=== PATIENT | female | born 1995 | race Caucasian/White ===

== ENCOUNTER 2016-08-09 16:58 | Inpatient (IN) | payer MEDICAID ==
[~2016-08-09] VITALS: Ht 160 cm; Wt 106.1 kg
[2016-08-09 17:07] VITALS: BP 124/66
[2016-08-09 17:22] VITALS: BP 124/66
[2016-08-09] MEDS ORDERED: DINOPROSTONE 10 MG (CERVIDIL) INSERT PV ONE (18:15)
[2016-08-09] MEDS: D5 LR IV SOLUTION 1,000 ML IV SCH ×2 (18:25→18:31)
[2016-08-09 18:29] LABS: BASOPHILS % (AUTO) 0 % (0-10); EOSINOPHILS # (AUTO) 0.1 10^3/uL (0.0-0.3); EOSINOPHILS % (AUTO) 1 % (0-10); LYMPHOCYTES % (AUTO) 20 % (12-44); MEAN CORPUSCULAR HEMOGLOBIN 30 PG (25-34); MEAN CORPUSCULAR HGB CONC 34 G/DL (32-36); MEAN CORPUSCULAR VOLUME 88 FL (80-99); MEAN PLATELET VOLUME 9.8 FL (7.4-10.4); MONOCYTES # (AUTO) 1.2 X 10^3 (0.0-1.0); MONOCYTES % (AUTO) 12 % (0-12); NEUTROPHILS # (AUTO) 6.8 X 10^3 (1.8-7.8); NEUTROPHILS % (AUTO) 67 % (42-75); PLATELET COUNT 299 10^3/uL (130-400); RED BLOOD COUNT 3.83 10^6/uL (4.35-5.85); RED CELL DISTRIBUTION WIDTH 13.1 % (10.0-14.5)
[2016-08-09 18:30] VITALS: BP 109/60
[2016-08-09] MEDS ORDERED: FLU TRIvalent (5 YOA+) 2016-17 (AFLURIA) 0.5 ML IM ONE (18:45)
[2016-08-09] MEDS ORDERED: ACETAMINOPHEN 500 MG TAB (TYLENOL) ONE (19:38)
[2016-08-09] MEDS ORDERED: OXYTOCIN/NORMAL SALINE 500 ML IV SCH (19:44)
[2016-08-09] MEDS ORDERED: ACETAMINOPHEN 500 MG TAB (TYLENOL) PO ONE (19:45)
--- NOTE | 2016-08-09 19:48 | OB Bishop Score ---
Acevedo Score 6 BAIRON LEGGETT MD Aug 09, 2016 19:48
--- NOTE | 2016-08-09 19:52 | History & Physical ---
History and Physical this patient is a 20-year-old G1 female with an EDC of August 17, 2016. She was admitted in the evening of August 09 for Cervidil cervical ripening with plans for Pitocin induction of labor at 39 weeks on August 10. Her was been uncomplicated although her OSWALDO was low on the last 2 ultrasounds. patient had GBS culture after 35 weeks gestation was negative. She denies rupture membranes or bleeding. Allergies are to penicillin which causes facial swelling Medications are vitamins Medical history, past surgical history, obstetric history, family history, and social histories are per the antepartum record HEENT exam is normal Neck is supple no lymphadenopathy no thyromegaly Abdomen is gravid soft nontender nondistended Extremities show no clubbing or cyanosis. There is no Homans sign. Pelvic exam last performed in clinic showed a cervix that was almost 1 cm dilated 60 percent or more effaced anus 2 station soft in consistency and intermediate to anterior in position equates to a Acevedo score of 6 or 7. Currently monitor shows normal heart rate pattern with some uterine irritability. Patient has had Cervidil placed about an hour to an hour and a half ago Laboratory Tests 08/09/16 18:05 CBC is essentially normal Assessment and plan term at 39 weeks on August 10. Patient has mild oligohydramnios and has been admitted now for Cervidil cervical ripening with intent for Pitocin induction of labor on August 10 which puts her at 39 weeks' gestation on the day of induction. Anticipation is for vaginal delivery although plans preparations are in place for delivery if needed. term intrauterine admitted for elective induction of labor with mild oligohydramnios Allergies and Home Medications Allergies Coded Allergies: Penicillins (Verified Allergy, Severe, HIVES, 08/09/16) Uncoded Allergies: Bee Stings (Allergy, Severe, HIVES, 08/09/16) Hives and swelling. Clinical Quality Measures DVT/VTE Risk/Contraindication: Risk Factor Score Per Nursin RFS Level Per Nursing on Admit: 1=Low/No VTE PPX BAIRON LEGGETT MD Aug 09, 2016 19:52
[2016-08-09 20:00] VITALS: BP 119/62
[2016-08-09] MEDS ORDERED: oxyCODONE/APAP 10/325MG (PERCOCET 10) TABLET PO ONE (21:54)
[2016-08-09] MEDS ORDERED: oxyCODONE/APAP 10/325MG (PERCOCET 10) TABLET PO PRN (22:00)
[2016-08-10] VITALS (57 sets, daily range): BP systolic 100–153; BP diastolic 52–81
[2016-08-10] MEDS: D5 LR IV SOLUTION 1,000 ML IV SCH ×3 (01:00→14:04)
--- NOTE | 2016-08-10 07:41 | Progress Note-Standard ---
Standard Progress Note Progress Notes/Assess & Plan Progress/Assessment & Plan patient is without complaint. She reports feeling a little bit crampy. She denies rupture membranes or bleeding. She does feel baby moving. Vital Signs Date Time Temp Pulse Resp B/P Pulse Ox O2 Delivery O2 Flow Rate FiO2 08/10/16 04:00 08/10/16 03:00 08/10/16 02:00 08/10/16 01:00 08/10/16 00:00 08/09/16 23:00 08/09/16 22:00 08/09/16 21:00 08/09/16 20:00 97.8 87 18 119/62 08/09/16 18:30 98 20 109/60 08/09/16 17:22 100 20 124/66 Room Air 08/09/16 17:07 98.0 100 20 124/66 Room Air I & O 08/10/16 07:00 Intake Total 100 ml Balance 100 ml Vital signs are stable. Patient is afebrile. Abdomen is gravid and benign. Extremities show no clubbing cyanosis. There is no Homans sign. There is some pretibial pitting edema that is normal. Pelvic exam reveals a cervix 1-2 cm dilated, 60+ percent effaced, mid to anterior, very soft and stretchy, stenting part is the vertex at the -1 station. Drains are intact amniotomy performed releasing clear fluid Assessment and plan 39 week gestation status post Cervidil cervical ripening now with Pitocin initiated for induction of labor. This patient is for a vaginal delivery. Plans preparations are in place for if needed BAIRON LEGGETT MD Aug 10, 2016 7:41 am
[2016-08-10] MEDS ORDERED: SUFENTA 0.6MCG/ML BUPIVA 0.125 100 ML ONE (10:49)
[2016-08-10] MEDS ORDERED: fentaNYL INJECTION 100 MCG/2 ML AMP ONE ×2 (10:54→18:05)
[2016-08-10] MEDS ORDERED: LACTATED RINGERS 1,000 ML IV ONE (11:31)
[2016-08-10] MEDS ORDERED: METOCLOPRAMIDE INJ 10 MG/2 ML (REGLAN) IV PRN ×2 (11:45→19:15)
[2016-08-10] MEDS ORDERED: fentaNYL INJECTION 100 MCG/2 ML AMP INJ ONE (11:45)
[2016-08-10] MEDS ORDERED: ONDANSETRON 4 MG/2 ML (SDV) Z0FRAN IV PRN ×2 (11:45→19:15)
[2016-08-10] MEDS ORDERED: diphenhydrAMINE 50 MG/ML INJ (BENADRYL) IV PRN ×2 (11:45→19:15)
[2016-08-10] MEDS ORDERED: NALOXONE 0.4 MG/ML 1 ML (NARCAN) VIAL IV PRN ×4 (11:45→19:15)
[2016-08-10] MEDS ORDERED: EPIDURAL (SUFENTA 0.6MCG/ML BUPIVA 0.125%) 100 ML BAG EPI PRN (11:45)
[2016-08-10] MEDS ORDERED: TERBUTALINE INJ 1 MG/ML (BRETHINE) AMP SC ONE (17:35)
[2016-08-10] MEDS ORDERED: TERBUTALINE INJ 1 MG/ML (BRETHINE) AMP ONE (17:42)
[2016-08-10] MEDS ORDERED: D5 LR IV SOLUTION 1,000 ML IV SCH (17:45)
[2016-08-10] MEDS ORDERED: CLINDAMYCIN 900 MG/50 ML IVPB 50 ML IV NR (17:45)
--- NOTE | 2016-08-10 17:52 | Progress Note-Standard ---
Standard Progress Note Progress Notes/Assess & Plan Progress/Assessment & Plan patient is without complaint. She reports feeling a little bit crampy. She denies rupture membranes or bleeding. She does feel baby moving. Vital Signs Date Time Temp Pulse Resp B/P Pulse Ox O2 Delivery O2 Flow Rate FiO2 08/10/16 04:00 08/10/16 03:00 08/10/16 02:00 08/10/16 01:00 08/10/16 00:00 08/09/16 23:00 08/09/16 22:00 08/09/16 21:00 08/09/16 20:00 97.8 87 18 119/62 08/09/16 18:30 98 20 109/60 08/09/16 17:22 100 20 124/66 Room Air 08/09/16 17:07 98.0 100 20 124/66 Room Air I & O 08/10/16 07:00 Intake Total 100 ml Balance 100 ml Vital signs are stable. Patient is afebrile. Abdomen is gravid and benign. Extremities show no clubbing cyanosis. There is no Homans sign. There is some pretibial pitting edema that is normal. Pelvic exam reveals a cervix 1-2 cm dilated, 60+ percent effaced, mid to anterior, very soft and stretchy, stenting part is the vertex at the -1 station. Drains are intact amniotomy performed releasing clear fluid Assessment and plan 39 week gestation status post Cervidil cervical ripening now with Pitocin initiated for induction of labor. This patient is for a vaginal delivery. Plans preparations are in place for if needed Final Diagnosis patient now complaining of markedly suprapubic pain with contractions. Epidural had been adequate but now the pain is progressive and is not taking care with the epidural. She has had some bloody show. The urine looks slightly pink tinged. Exam reveals a cervix is low more than 57 Ms. dilated 90 percent effaced -1 station with the presenting part well above the pubic symphysis. Cervix is lasted and stretchy. The presenting part is not applied to the cervix. Pitocin is at 36 mU/m. Patient has been 5 cm for several hours now. She indicates that she does not want to continue it does not look like vaginal delivery is eminent. I have discussed her exam and the history through the day. It does appear that there CPD preventing progress at this point I have recommended with which the patient agrees. Pitocin. Patient be given a break from the contractions and surgical crews and anesthesia have been called Vital Signs Date Time Temp Pulse Resp B/P Pulse Ox O2 Delivery O2 Flow Rate FiO2 08/10/16 14:50 78 18 133/63 Room Air 08/10/16 14:36 86 18 143/63 Room Air 08/10/16 14:21 78 18 135/64 Room Air 08/10/16 14:05 85 18 102/54 Room Air 08/10/16 13:50 82 18 103/54 Room Air 08/10/16 13:35 85 18 102/53 Room Air 08/10/16 13:20 85 18 100/52 Room Air 08/10/16 13:07 85 18 111/56 Room Air 08/10/16 12:51 78 18 126/60 97 Room Air 08/10/16 12:30 83 18 129/58 98 Room Air 08/10/16 12:17 83 18 122/69 100 Room Air 08/10/16 12:12 84 18 130/60 99 Room Air 08/10/16 12:08 88 18 131/66 99 Room Air 08/10/16 12:01 87 18 126/54 100 Room Air 08/10/16 11:56 86 18 136/69 98 Room Air 08/10/16 11:51 85 18 129/58 98 Room Air 08/10/16 11:45 87 18 131/60 98 Room Air 08/10/16 11:37 89 18 128/60 98 Room Air 08/10/16 11:32 98.1 91 20 133/70 99 Room Air 08/10/16 11:27 94 20 138/69 100 Room Air 08/10/16 11:22 92 20 140/73 99 Room Air 08/10/16 11:16 91 20 133/68 100 Room Air 08/10/16 11:11 90 20 144/81 99 Room Air 08/10/16 11:08 96 20 144/80 99 Room Air 08/10/16 11:02 88 20 129/66 98 Room Air 08/10/16 10:51 97 18 137/75 08/10/16 10:33 91 18 126/67 08/10/16 10:18 93 18 123/65 08/10/16 10:05 90 18 125/69 08/10/16 09:50 98.3 90 18 131/60 08/10/16 09:35 93 18 130/71 08/10/16 09:19 88 18 134/69 08/10/16 09:03 93 18 129/63 08/10/16 08:50 93 18 123/58 08/10/16 08:35 93 20 124/69 08/10/16 08:19 96 20 126/61 08/10/16 08:05 96 20 123/63 08/10/16 07:48 94 18 131/79 08/10/16 07:20 98.0 08/10/16 07:05 86 18 130/64 08/10/16 04:00 08/10/16 03:00 08/10/16 02:00 08/10/16 01:00 08/10/16 00:00 08/09/16 23:00 08/09/16 22:00 08/09/16 21:00 08/09/16 20:00 97.8 87 18 119/62 08/09/16 18:30 98 20 109/60 I & O 08/10/16 07:00 Intake Total 100 ml Balance 100 ml I signs are stable. Patient afebrile. Exam is as noted above. Assessment and plan a progress in labor likely secondary to CPD. Uncertain as to the position of the presenting part that will be determined at the time of delivery as well have the feeling that this is a persistent occiput posterior. We will proceed now with delivery. BAIRON LEGGETT MD Aug 10, 2016 5:52 pm
[2016-08-10] MEDS ORDERED: D5 LR IV SOLUTION 1,000 ML IV ONE (17:54)
[2016-08-10] MEDS ORDERED: CITRIC ACID/SOB CIT (BICITRA) 30 ML UDC ONE (17:55)
[2016-08-10] MEDS ORDERED: METOCLOPRAMIDE INJ 10 MG/2 ML (REGLAN) ONE (17:55)
[2016-08-10] MEDS ORDERED: FAMOTIDINE 20MG/2ML IV (PEPCID) ONE (17:55)
[2016-08-10] MEDS ORDERED: MEPERIDINE (DEMEROL) INJ 100 MG/ML IM PRN (18:00)
[2016-08-10] MEDS ORDERED: PROMETHAZINE INJ 25 MG/ML (PHENERGAN) AMP IM PRN (18:00)
[2016-08-10] MEDS ORDERED: TETANUS,DIPTH,PERTUSS P/F (BOOSTRIX) 0.5 ML VIAL IM ONE (18:00)
[2016-08-10] MEDS ORDERED: MEASLES,MUMPS,RUBELLA 1 EA INJ SC ONE (18:00)
[2016-08-10] MEDS ORDERED: KETOROLAC 30 MG/ML VIAL ONE (18:07)
[2016-08-10] MEDS ORDERED: OXYTOCIN/NORMAL SALINE 1,000 ML IV ONE (18:07)
[2016-08-10] MEDS ORDERED: ONDANSETRON 4 MG/2 ML (SDV) Z0FRAN ONE (18:07)
[2016-08-10] MEDS ORDERED: PHENYLEPHRINE 100 MCG/ML 10 ML (ANESTHESIA) SYR ONE (18:53)
[2016-08-10] MEDS: KETOROLAC 30 MG/ML VIAL IVP SCH (19:00)
[2016-08-10] MEDS ORDERED: METOCLOPRAMIDE INJ 10 MG/2 ML (REGLAN) IV ONE (19:00)
[2016-08-10] MEDS ORDERED: CITRIC ACID/SOB CIT (BICITRA) 30 ML UDC PO ONE (19:00)
[2016-08-10] MEDS ORDERED: FAMOTIDINE 20MG/2ML IV (PEPCID) IV ONE (19:00)
[2016-08-10] MEDS: OXYTOCIN/NORMAL SALINE 500 ML IV SCH ×2 (19:41→22:53)
[2016-08-10] MEDS: oxyCODONE/APAP 10/325MG (PERCOCET 10) TABLET PO PRN (22:50)
[2016-08-11 00:15] VITALS: BP 121/72
[2016-08-11] MEDS: KETOROLAC 30 MG/ML VIAL IVP SCH ×2 (00:26→06:02)
[2016-08-11] MEDS: DOCUSATE SODIUM 100 MG (COLACE) CAP PO SCH ×3 (00:27→22:23)
[2016-08-11 06:00] VITALS: BP 130/72
--- NOTE | 2016-08-11 07:29 | Progress Note-Standard ---
Standard Progress Note Progress Notes/Assess & Plan Progress/Assessment & Plan patient is without complaint. She reports feeling a little bit crampy. She denies rupture membranes or bleeding. She does feel baby moving. Vital Signs Date Time Temp Pulse Resp B/P Pulse Ox O2 Delivery O2 Flow Rate FiO2 08/10/16 04:00 08/10/16 03:00 08/10/16 02:00 08/10/16 01:00 08/10/16 00:00 08/09/16 23:00 08/09/16 22:00 08/09/16 21:00 08/09/16 20:00 97.8 87 18 119/62 08/09/16 18:30 98 20 109/60 08/09/16 17:22 100 20 124/66 Room Air 08/09/16 17:07 98.0 100 20 124/66 Room Air I & O 08/10/16 07:00 Intake Total 100 ml Balance 100 ml Vital signs are stable. Patient is afebrile. Abdomen is gravid and benign. Extremities show no clubbing cyanosis. There is no Homans sign. There is some pretibial pitting edema that is normal. Pelvic exam reveals a cervix 1-2 cm dilated, 60+ percent effaced, mid to anterior, very soft and stretchy, stenting part is the vertex at the -1 station. Drains are intact amniotomy performed releasing clear fluid Assessment and plan 39 week gestation status post Cervidil cervical ripening now with Pitocin initiated for induction of labor. This patient is for a vaginal delivery. Plans preparations are in place for if needed August 11, 2016 Patient is without complaint. She is ambulating, voiding, tolerating by mouth well, has good pain control. Patient denies chest pain, denies shortness of breath, denies nausea vomiting. Vital Signs Date Time Temp Pulse Resp B/P Pulse Ox O2 Delivery O2 Flow Rate FiO2 08/11/16 06:00 97.5 100 20 130/72 Room Air 08/11/16 00:15 97.6 95 18 121/72 99 Room Air 08/10/16 21:00 97.5 88 20 116/61 98 Room Air 08/10/16 20:20 97.5 83 18 112/57 100 Room Air 08/10/16 18:10 98.8 110 22 153/70 Room Air 08/10/16 17:56 91 22 142/74 Room Air 08/10/16 17:40 96 20 137/72 Room Air 08/10/16 17:23 96 18 149/79 Room Air 08/10/16 17:09 87 18 122/79 Room Air 08/10/16 17:06 89 18 131/58 Room Air 08/10/16 16:58 96 18 128/68 Room Air 08/10/16 16:55 94 18 124/63 Room Air 08/10/16 16:50 94 18 122/58 Room Air 08/10/16 16:45 88 18 130/69 Room Air 08/10/16 16:35 95 18 136/63 Room Air 08/10/16 16:20 88 18 127/70 Room Air 08/10/16 16:06 85 18 124/67 Room Air 08/10/16 15:53 88 18 131/67 Room Air 08/10/16 15:35 98.4 84 18 122/71 Room Air 08/10/16 15:20 86 18 127/66 Room Air 08/10/16 14:50 78 18 133/63 Room Air 08/10/16 14:36 86 18 143/63 Room Air 08/10/16 14:21 78 18 135/64 Room Air 08/10/16 14:05 85 18 102/54 Room Air 08/10/16 13:50 82 18 103/54 Room Air 08/10/16 13:35 85 18 102/53 Room Air 08/10/16 13:20 85 18 100/52 Room Air 08/10/16 13:07 85 18 111/56 Room Air 08/10/16 12:51 78 18 126/60 97 Room Air 08/10/16 12:30 83 18 129/58 98 Room Air 08/10/16 12:17 83 18 122/69 100 Room Air 08/10/16 12:12 84 18 130/60 99 Room Air 08/10/16 12:08 88 18 131/66 99 Room Air 08/10/16 12:01 87 18 126/54 100 Room Air 08/10/16 11:56 86 18 136/69 98 Room Air 08/10/16 11:51 85 18 129/58 98 Room Air 08/10/16 11:45 87 18 131/60 98 Room Air 08/10/16 11:37 89 18 128/60 98 Room Air 08/10/16 11:32 98.1 91 20 133/70 99 Room Air 08/10/16 11:27 94 20 138/69 100 Room Air 08/10/16 11:22 92 20 140/73 99 Room Air 08/10/16 11:16 91 20 133/68 100 Room Air 08/10/16 11:11 90 20 144/81 99 Room Air 08/10/16 11:08 96 20 144/80 99 Room Air 08/10/16 11:02 88 20 129/66 98 Room Air 08/10/16 10:51 97 18 137/75 08/10/16 10:33 91 18 126/67 08/10/16 10:18 93 18 123/65 08/10/16 10:05 90 18 125/69 08/10/16 09:50 98.3 90 18 131/60 08/10/16 09:35 93 18 130/71 08/10/16 09:19 88 18 134/69 08/10/16 09:03 93 18 129/63 08/10/16 08:50 93 18 123/58 08/10/16 08:35 93 20 124/69 08/10/16 08:19 96 20 126/61 08/10/16 08:05 96 20 123/63 08/10/16 07:48 94 18 131/79 I & O 08/11/16 07:00 Intake Total 4894 ml Output Total 1050 ml Balance 3844 ml Vital signs are stable. Patient is afebrile. Abdomen is benign. Extreme show clubbing or cyanosis. There is no Homans sign. There is some pretibial pitting edema that is normal. Assessment and plan postoperative day number 1 status post primary doing well. Plan is for routine postoperative care. BAIRON LEGGETT MD Aug 11, 2016 7:29 am
[2016-08-11 08:23] VITALS: BP 120/77
[2016-08-11] MEDS ORDERED: IBUPROFEN 800 MG (MOTRIN) TAB PO ONE (12:02)
[2016-08-11] MEDS: IBUPROFEN 800 MG (MOTRIN) TAB PO SCH ×2 (12:05→18:04)
[2016-08-11 12:07] VITALS: BP 127/85
--- NOTE | 2016-08-11 13:19 | Anesthesia-Regional Post-Op ---
Regional Patient Condition Mental Status: Alert, Oriented x3 Circulation: Same as Pre-Op Headache: Absent Sensation: Full Recovery Motor Block: Absent Post Op Complications Complications None Follow Up Care/Instructions Patient Instructions None needed. Anesthesia/Patient Condition Patient is doing well, no complaints, stable vital signs, no apparent adverse anesthesia problems. No complications reported per nursing. MEI SUNSHINE CRNA Aug 11, 2016 13:18
--- NOTE | 2016-08-11 14:34 | OPERATIVE REPORT ---
PROCEDURE PHYSICIAN: BAIRON LEGGETT DATE OF PROCEDURE: 08/10/2016 DATE OF DICTATION: 08/10/2016 PREOPERATIVE DIAGNOSIS: Term in labor with failure to progress/CPD. POSTOPERATIVE DIAGNOSIS: Term in labor with failure to progress/CPD with persistent OP. OPERATIVE PROCEDURE: Primary low transverse delivery of a viable female with Apgars of 8 and 8 at 1 and 5 minutes respectively. Weight was 7 pounds, 10 ounces. Cord blood had a pH of 7.31. OPERATIVE DESCRIPTION: With the patient in the supine position, under satisfactory spinal anesthesia, she was prepped and draped usual fashion for abdominal surgery. Sánchez catheter had been placed in the urinary bladder during labor, that was left to dependent drainage. A Pfannenstiel incision was made through skin with scalpel. The patient's abdomen entered in the usual manner. Bladder retractor was placed into position, clean scalpel used to make a 4 cm hysterotomy incision transversely across lower uterine segment that was extended by blunt dissection as well. A small amount of clear fluid was released on hysterotomy. A viable female infant was delivered from a straight OP position via the uterine incision. The infant had Apgars of 8 and 8 at 1 and 5 minutes respectfully. Weight was 7 pounds, 10 ounces. time was 1841. Cord arterial blood pH was 7.31. The was bulb suctioned on delivery of the head and again on completion of the delivery. The cord was doubly clamped and cut and infant passed to nurse Chopra, the pediatric nurse in attendance for delivery. Cord bloods were obtained as noted. The placenta delivered spontaneously Sahu. It was normal with a three-vessel cord. The uterus was exteriorized, interior wiped clean with a wet laparotomy sponge. Uterine incision then closed with running locked suture of 2-0 Vicryl. Hemostasis was satisfactory but the uterus was quite atonic. In order to insure hemostasis remained satisfactory, a modified B. Le suture was placed using 2-0 chromic sutures. That compressed the uterus nicely. The uterus was returned to the abdominal cavity. All blood clot and debris removed from the abdominal cavity. With sponge and needle counts correct and hemostasis assured, the anterior parietal peritoneum was closed with running suture of 2-0 Vicryl. The rectus muscles were closed with that suture as well as well. The rectus fascia was closed with 2-0 Vicryl. Subcutaneous tissue with 2-0 Vicryl and the skin was stapled. Sponge and needle counts were correct at the end of procedure. Estimated blood loss for the procedure was around 500 mL. The patient tolerated the procedure well, and was uneventfully transferred to recovery room in stable condition. The had been taken stable to the full term nursery under the care of nurse Chopra. Job ID: [id number] Dictated Date: 08/10/2016 19:23:06 Hearing Specialist Date: 08/11/2016 14:26:42 / juan antonio
[2016-08-11] MEDS: oxyCODONE/APAP 10/325MG (PERCOCET 10) TABLET PO PRN (16:56)
[2016-08-11 18:06] VITALS: BP 126/75
[2016-08-11 22:00] VITALS: BP 117/72
[2016-08-12] VITALS: BP 120/74
[2016-08-12] MEDS: oxyCODONE/APAP 10/325MG (PERCOCET 10) TABLET PO PRN ×2 (00:15→05:40)
[2016-08-12] MEDS: IBUPROFEN 800 MG (MOTRIN) TAB PO SCH ×3 (00:15→12:34)
[2016-08-12] MEDS: KETOROLAC 30 MG/ML VIAL IVP SCH (01:34)
[2016-08-12 05:50] VITALS: BP 111/72
[2016-08-12 09:00] VITALS: BP 118/78
--- NOTE | 2016-08-12 09:00 | Progress Note-Standard ---
Standard Progress Note Progress Notes/Assess & Plan Progress/Assessment & Plan patient is without complaint. She reports feeling a little bit crampy. She denies rupture membranes or bleeding. She does feel baby moving. Vital Signs Date Time Temp Pulse Resp B/P Pulse Ox O2 Delivery O2 Flow Rate FiO2 08/10/16 04:00 08/10/16 03:00 08/10/16 02:00 08/10/16 01:00 08/10/16 00:00 08/09/16 23:00 08/09/16 22:00 08/09/16 21:00 08/09/16 20:00 97.8 87 18 119/62 08/09/16 18:30 98 20 109/60 08/09/16 17:22 100 20 124/66 Room Air 08/09/16 17:07 98.0 100 20 124/66 Room Air I & O 08/10/16 07:00 Intake Total 100 ml Balance 100 ml Vital signs are stable. Patient is afebrile. Abdomen is gravid and benign. Extremities show no clubbing cyanosis. There is no Homans sign. There is some pretibial pitting edema that is normal. Pelvic exam reveals a cervix 1-2 cm dilated, 60+ percent effaced, mid to anterior, very soft and stretchy, stenting part is the vertex at the -1 station. Drains are intact amniotomy performed releasing clear fluid Assessment and plan 39 week gestation status post Cervidil cervical ripening now with Pitocin initiated for induction of labor. This patient is for a vaginal delivery. Plans preparations are in place for if needed August 11, 2016 Patient is without complaint. She is ambulating, voiding, tolerating by mouth well, has good pain control. Patient denies chest pain, denies shortness of breath, denies nausea vomiting. Vital Signs Date Time Temp Pulse Resp B/P Pulse Ox O2 Delivery O2 Flow Rate FiO2 08/11/16 06:00 97.5 100 20 130/72 Room Air 08/11/16 00:15 97.6 95 18 121/72 99 Room Air 08/10/16 21:00 97.5 88 20 116/61 98 Room Air 08/10/16 20:20 97.5 83 18 112/57 100 Room Air 08/10/16 18:10 98.8 110 22 153/70 Room Air 08/10/16 17:56 91 22 142/74 Room Air 08/10/16 17:40 96 20 137/72 Room Air 08/10/16 17:23 96 18 149/79 Room Air 08/10/16 17:09 87 18 122/79 Room Air 08/10/16 17:06 89 18 131/58 Room Air 08/10/16 16:58 96 18 128/68 Room Air 08/10/16 16:55 94 18 124/63 Room Air 08/10/16 16:50 94 18 122/58 Room Air 08/10/16 16:45 88 18 130/69 Room Air 08/10/16 16:35 95 18 136/63 Room Air 08/10/16 16:20 88 18 127/70 Room Air 08/10/16 16:06 85 18 124/67 Room Air 08/10/16 15:53 88 18 131/67 Room Air 08/10/16 15:35 98.4 84 18 122/71 Room Air 08/10/16 15:20 86 18 127/66 Room Air 08/10/16 14:50 78 18 133/63 Room Air 08/10/16 14:36 86 18 143/63 Room Air 08/10/16 14:21 78 18 135/64 Room Air 08/10/16 14:05 85 18 102/54 Room Air 08/10/16 13:50 82 18 103/54 Room Air 08/10/16 13:35 85 18 102/53 Room Air 08/10/16 13:20 85 18 100/52 Room Air 08/10/16 13:07 85 18 111/56 Room Air 08/10/16 12:51 78 18 126/60 97 Room Air 08/10/16 12:30 83 18 129/58 98 Room Air 08/10/16 12:17 83 18 122/69 100 Room Air 08/10/16 12:12 84 18 130/60 99 Room Air 08/10/16 12:08 88 18 131/66 99 Room Air 08/10/16 12:01 87 18 126/54 100 Room Air 08/10/16 11:56 86 18 136/69 98 Room Air 08/10/16 11:51 85 18 129/58 98 Room Air 08/10/16 11:45 87 18 131/60 98 Room Air 08/10/16 11:37 89 18 128/60 98 Room Air 08/10/16 11:32 98.1 91 20 133/70 99 Room Air 08/10/16 11:27 94 20 138/69 100 Room Air 08/10/16 11:22 92 20 140/73 99 Room Air 08/10/16 11:16 91 20 133/68 100 Room Air 08/10/16 11:11 90 20 144/81 99 Room Air 08/10/16 11:08 96 20 144/80 99 Room Air 08/10/16 11:02 88 20 129/66 98 Room Air 08/10/16 10:51 97 18 137/75 08/10/16 10:33 91 18 126/67 08/10/16 10:18 93 18 123/65 08/10/16 10:05 90 18 125/69 08/10/16 09:50 98.3 90 18 131/60 08/10/16 09:35 93 18 130/71 08/10/16 09:19 88 18 134/69 08/10/16 09:03 93 18 129/63 08/10/16 08:50 93 18 123/58 08/10/16 08:35 93 20 124/69 08/10/16 08:19 96 20 126/61 08/10/16 08:05 96 20 123/63 08/10/16 07:48 94 18 131/79 I & O 08/11/16 07:00 Intake Total 4894 ml Output Total 1050 ml Balance 3844 ml Vital signs are stable. Patient is afebrile. Abdomen is benign. Extreme show clubbing or cyanosis. There is no Homans sign. There is some pretibial pitting edema that is normal. Assessment and plan postoperative day number 1 status post primary doing well. Plan is for routine postoperative care. August 12, 2016 Patient is without complaint. She is ambulating, voiding, tolerating by mouth well, has good pain control and is requesting discharge home. Vital Signs Date Time Temp Pulse Resp B/P Pulse Ox O2 Delivery O2 Flow Rate FiO2 08/12/16 05:50 97.4 76 18 111/72 99 Room Air 08/12/16 00:00 97.8 88 18 120/74 98 Room Air 08/11/16 22:00 97.2 84 18 117/72 100 Room Air 3/3/17 18:06 98.2 97 18 126/75 98 Room Air 08/11/16 12:07 97.6 97 16 127/85 99 Room Air I & O 08/12/16 07:00 Intake Total 800 ml Output Total 2400 ml Balance -1600 ml Vital signs are stable. Patient afebrile. Fundus is firm below the umbilicus and nontender. Incision is clean dry and intact. Extreme show clubbing cyanosis. There is no Homans sign.there is some pretibial pitting edema that is normal. Assessment and plan postoperative day number 2 status post primary doing well. Plan is for discharge home with follow-up in clinic. Final Diagnosis primary BAIRON LEGGETT MD Aug 12, 2016 8:59 am
[2016-08-12] MEDS ORDERED: OXYC-465 PO (09:01)
[2016-08-12] MEDS ORDERED: DOCU100C37 PO (09:01)
[2016-08-12] MEDS ORDERED: IBUP-1780 PO (09:01)
--- NOTE | 2016-08-12 09:02 | Discharge Instructions ---
Discharge Instructions Discharge Medications New, Converted or Re-Newed RX: RX on Chart Patient Instructions Patient Instructions: as directed Return to The Hospital For: as directed Activity & Diet Discharge Diet: No Restrictions Activity as Tolerated: No Orders-Post D/C & Referrals Follow Up Appt: RTC on Friday, August 19, 2016 at 930 a.m. for incision check. Call to make follow up appt. for patient in 4 weeks. Wound Care: Remove sergey, apply benzoin and steri strips. Activity Per routine post instructions. Diet as tolerated Patient may shower or tub bathe as desired. Continue home meds BAIRON LEGGETT MD Aug 12, 2016 9:02 am
[2016-08-12] MEDS: DOCUSATE SODIUM 100 MG (COLACE) CAP PO SCH (09:37)
[2016-08-12] MEDS ORDERED: FLU TRIvalent (5 YOA+) 2016-17 (AFLURIA) 0.5 ML IM ONE (12:25)
[2016-08-12] MEDS ORDERED: TETANUS,DIPTH,PERTUSS P/F (BOOSTRIX) 0.5 ML VIAL IM ONE (12:27)
--- NOTE | 2016-08-22 17:35 | Discharge Summary ---
Discharge Summary term operative delivery 39 weeks gestation this patient is a 21-year-old G1 white female admitted on the evening of August for Cervidil cervical ripening. Her was complicated by mild polyhydramnios. She did have Cervidil on the evening of 08/09/16 on the morning of 08/10/16 she was started on Pitocin for induction of labor. she did labor adequately and progressed through the day to 6 or 7 cm dilated that point she felt dilating further in spite of adequate contractions. Decision was made to proceed with delivery secondary to CPD. Intraoperative findings were consistent with CPD as well as persistent OP. The patient delivered by Lilo delivery of a female infant with Apgars of 8 and 815 respectively weight was 7 lbs. 10 oz. time was 1841 cord blood arterial pH was 7.31 the delivery was uncomplicated. Patient recovered uneventfully. On 08/11/16patient was ambulating, voiding, tolerating by mouth well, had good pain control. She had routine care through the day On 08/12/16 patient again was ambulating well voiding well tolerating by mouth well. Patient had good pain control and was requesting discharge home. She was discharged home with follow-up in clinic. primary diagnoses was 39 week primary delivery secondary diagnoses were mild oligohydramnios, failure to progress in labor, CPD, persistent OP position Operation procedures include Cervidil cervical ripening, Pitocin induction of labor, epidural analgesia, primary low transverse delivery Patient was given appropriate discharge instructions verbally and in writing. A copy of those instructions were in the chart. Discharge medications were Percocet, Motrin, Colace. Patient was to continue her home medications. Clinical Quality Measures DVT/VTE Risk/Contraindication: Risk Factor Score Per Nursin RFS Level Per Nursing on Admit: 1=Low/No VTE PPX BAIRON LEGGETT MD Aug 22, 2016 17:35
== END 2016-08-12 16:45 | disposition home or self-care (01) | DRG 766 ==
LOC: LDRP 16:58 → UNDOADMIN 17:15 → LDRP 08-11
PROVIDERS: ADMIT Obstetrics & Gynecology; ATTEND Obstetrics & Gynecology
PROC: 10D00Z1 Extraction of Products of Conception, Low, Open Approach (ICD-10-PCS; principal; 2016-08-10 18:18)
DX: O41.03X0 Oligohydramnios, third trimester, not applicable or unspecified (principal); O33.9 Maternal care for disproportion, unspecified; Z3A.39 39 weeks gestation of pregnancy; Z37.0 Single live birth; Z23 Encounter for immunization
CPT/HCPCS: 36415; 85025; 86850; 86900; 86901; 90715; 94664

== ENCOUNTER 2018-11-25 09:50 | Outpatient (CLI) | payer MEDICAID ==
[~2018-11-25] VITALS: Ht 160 cm; Wt 112.5 kg
[~2018-11-25 09:50] MED LIST: DOCU100C37 PO; IBUP-1780 PO; OXYC-465 PO
[2018-11-25] MEDS ORDERED: IBUP-1780 PO (11:40)
[2018-11-25] MEDS ORDERED: OXYC1TAB87 PO (11:41)
--- NOTE | 2018-11-25 11:42 | Discharge Instructions ---
Discharge Instructions Discharge Medications New, Converted or Re-Newed RX: RX on Chart Patient Instructions Patient Instructions: As directed Return to The Hospital For: As directed Activity & Diet Discharge Diet: No Restrictions Activity as Tolerated: No Orders-Post D/C & Referrals Follow Up Appt: Call to make follow up appt. for patient in 2 weeks. Activity: Rest for 24 hours, than as tolerated. Please call in RX to patient pharmacy. Diet: As tolerated-Clear Liquids only if nauseated. may shower or tub bathe as desired. No driving for 24 hours, no alcoholic beverages for 24 hours, and nothing per vagina (no tampons, douching, or intercourse) for 2 weeks. Patient to return to the clinic as soon as possible for: Temperature greater than 101F, Severe Pain, Foul discharge from incision or vagina, Excessive Ble eding (more than a period). BAIRON LEGGETT MD Nov 25, 2018 11:42
[2018-11-27] MEDS ORDERED: OXYC1TAB87 PO (13:09)
== END 2018-11-25 14:50 | disposition home or self-care (01) ==
LOC: PREOP 09:50
PROVIDERS: ATTEND Obstetrics & Gynecology
DX: Z01.818 Encounter for other preprocedural examination (principal)

== ENCOUNTER 2018-11-27 11:14 | Day surgery (SDC) | payer BC, MEDICAID, OTHER ==
[2018-11-27] VITALS (10 sets, daily range): BP systolic 68–128; BP diastolic 51–81
[~2018-11-27] VITALS: Ht 160 cm; Wt 112.5 kg
[~2018-11-27 11:14] MED LIST changes: +OXYC1TAB87 PO
[2018-11-27] MEDS ORDERED: LIDOCAINE PF 0.5% 50 ML (XYLOCAINE) VIAL ONE (11:56)
[2018-11-27] MEDS ORDERED: proPOfol 200 MG/20 ML (DIPRIVAN) VIAL IV ONE (11:56)
[2018-11-27] MEDS ORDERED: ONDANSETRON 4 MG/2 ML (SDV) Z0FRAN ONE ×2 (11:56→13:23)
[2018-11-27] MEDS ORDERED: DEXAMETHASONE 10 MG/ML (DECADRON) 1 ML VIAL ONE (11:56)
[2018-11-27] MEDS ORDERED: fentaNYL INJECTION 250 MCG/5 ML AMP ONE (11:57)
[2018-11-27] MEDS ORDERED: MIDAZOLAM 2 MG/2 ML (VERSED) VIAL ONE (11:57)
[2018-11-27] MEDS ORDERED: fentaNYL INJECTION 100 MCG/2 ML AMP ONE (11:58)
[2018-11-27] MEDS ORDERED: LEVOFLOXACIN 250 MG/D5W 50 ML (PRE-MIX) IV ONE (12:00)
--- NOTE | 2018-11-27 12:41 | Progress Note-Post Operative ---
Post-Operative Progess Note Surgeon (s)/Decorative Engraver (s) Surgeon BAIRON LEGGETT MD Decorative Engraver: no Pre-Operative Diagnosis IUFD at 12 weeks Post-Operative Diagnosis same Procedure & Operative Findings Date of Procedure 11/27/18 Procedure Performed/Findings D&C for mised Anesthesia Type geta Estimated Blood Loss Estimated blood loss (mL): 500cc Specimens/Packing Specimens Removed POC uterine contents Packing: no BAIRON LEGGETT MD Nov 27, 2018 12:41
--- NOTE | 2018-11-27 12:41 | Progress Note-Pre Operative ---
Pre-Operative Progress Note H&P Reviewed The H&P was reviewed, patient examined and no changes noted. Date Seen by Provider: Nov 27, 2018 Time Seen by Provider: 12:40 Date H&P Reviewed: Nov 27, 2018 Time H&P Reviewed: 12:40 Pre-Operative Diagnosis: IUFD at 12 weeks BAIRON LEGGETT MD Nov 27, 2018 12:40
[2018-11-27] MEDS ORDERED: LACTATED RINGERS 1,000 ML IV PRN (12:48)
[2018-11-27] MEDS ORDERED: LEVOFLOXACIN 250 MG/50 ML IVPB 50 ML IV ONE (13:00)
[2018-11-27] MEDS ORDERED: KETOROLAC 30 MG/ML VIAL ONE ×2 (13:02)
[2018-11-27 13:05] LABS: BASOPHILS % (AUTO) 0 % (0-10); EOSINOPHILS # (AUTO) 0.1 10^3/uL (0.0-0.3); EOSINOPHILS % (AUTO) 1 % (0-10); HEMATOCRIT 37 % (35-52); HEMOGLOBIN 12.7 G/DL (11.5-16.0); LYMPHOCYTES # (AUTO) 1.5 X 10^3 (1.0-4.0); LYMPHOCYTES % (AUTO) 27 % (12-44); MEAN CORPUSCULAR HEMOGLOBIN 30 PG (25-34); MEAN CORPUSCULAR HGB CONC 35 G/DL (32-36); MEAN CORPUSCULAR VOLUME 88 FL (80-99); MEAN PLATELET VOLUME 9.7 FL (7.4-10.4); MONOCYTES # (AUTO) 0.6 X 10^3 (0.0-1.0); MONOCYTES % (AUTO) 10 % (0-12); NEUTROPHILS # (AUTO) 3.4 X 10^3 (1.8-7.8); NEUTROPHILS % (AUTO) 62 % (42-75); PLATELET COUNT 285 10^3/uL (130-400); RED CELL DISTRIBUTION WIDTH 11.8 % (10.0-14.5); WHITE BLOOD COUNT 5.6 10^3/uL (4.3-11.0)
--- NOTE | 2018-11-27 13:08 | Discharge Instructions ---
Discharge Instructions Discharge Medications New, Converted or Re-Newed RX: RX on Chart Patient Instructions Patient Instructions: as directed Return to The Hospital For: as directed Activity & Diet Discharge Diet: No Restrictions Orders-Post D/C & Referrals Follow Up Appt: Call to make follow up appt. for patient in 2 weeks. Activity: Rest for 24 hours, than as tolerated. Diet: As tolerated-Clear Liquids only if nauseated. shower or tub bathe as desired. No driving for 24 hours, no alcoholic beverages for 24 hours, and nothing per vagina (no tampons, douching, or intercorse) for 2 weeks. Patient to return to the clinic as soon as possible for: Temperature greater than 101F, Severe Pain, Foul discharge from incision or vagina, Excessive Bleeding (more than a period). BAIRON LEGGETT MD Nov 27, 2018 13:08
[2018-11-27] MEDS ORDERED: OXYC1TAB87 PO (13:09)
[2018-11-27] MEDS ORDERED: morphine INJ 10 MG/ML 1ML (SYR OR VIAL) ONE (13:23)
[2018-11-27] MEDS ORDERED: morphine INJ 10 MG/ML 1ML (SYR OR VIAL) IVP ONE (13:30)
[2018-11-27] MEDS ORDERED: ONDANSETRON 4 MG/2 ML (SDV) Z0FRAN IVP PRN ×2 (13:30→14:15)
[2018-11-27] MEDS ORDERED: HYDROmorphone 2 MG/ML VIAL (DILAUDID) IV ONE (13:30)
--- NOTE | 2018-11-27 14:03 | Anesthesia-General Post-Op ---
General Patient Condition Mental Status/LOC: Same as Preop Cardiovascular: Satisfactory Nausea/Vomiting: Absent Respiratory: Satisfactory Pain: Controlled Complications: Absent Post Op Complications Complications None Follow Up Care/Instructions Patient Instructions None needed. Anesthesia/Patient Condition Patient Condition Patient is doing well, no complaints, stable vital signs, no apparent adverse anesthesia problems. [place] DO Nov 27, 2018 14:03
[2018-11-27] MEDS ORDERED: D5 LR IV SOLUTION 1,000 ML IV SCH (14:13)
[2018-11-27] MEDS ORDERED: PROMETHAZINE INJ 25 MG/ML (PHENERGAN) AMP IM ONE (14:15)
[2018-11-27] MEDS ORDERED: oxyCODONE/APAP 5/325MG (PERCOCET 5) TABLET PO PRN (14:15)
[2018-11-27] MEDS ORDERED: KETOROLAC 30 MG/ML VIAL IVP ONE (14:15)
[2018-11-27] MEDS ORDERED: MEPERIDINE (DEMEROL) INJ 100 MG/ML IM ONE (14:15)
[2018-11-27] MEDS ORDERED: IBUPROFEN 800 MG (MOTRIN) TAB PO SCH (18:00)
--- NOTE | 2018-12-04 18:49 | HISTORY AND PHYSICAL ---
DATE OF SERVICE: 11/27/2018 PREOPERATIVE HISTORY AND PHYSICAL HISTORY OF PRESENT ILLNESS: The patient is a 23-year-old G2, P1 white female currently at 12 weeks gestation with intrauterine demise noted on office visit on this date. She denied ruptured membranes or bleeding. She had no contractions. No headache. No nausea or vomiting. had been viable when the patient was seen at 8 weeks' gestation. Ultrasound confirmed demise. She was sent to outpatient surgery scheduled for outpatient surgery on 11/27/2018 for D and C. ALLERGIES: PENICILLIN, WHICH CAUSES A RASH AND FACIAL SWELLING. MEDICATIONS: vitamins. PAST MEDICAL HISTORY: The patient had a bee sting in 2012 for which she had a significant reaction. PAST SURGICAL HISTORY: The patient had her left knee operated on laparoscopic weight loss to correct that arthroscopically in 2013. PAST OB HISTORY: The patient had 1 term spontaneous vaginal delivery. GYNECOLOGIC HISTORY: Includes a menstrual formula of 04/15/regular. Last Pap smear was within the last two years. FAMILY HISTORY: Noncontributory. SOCIAL HISTORY: The patient is a single female. She denies alcohol and drug use, although she states that she had tried marijuana a couple of times in the past. She had used tobacco, but she stopped that when she found out she was . PHYSICAL EXAMINATION: HEENT: Normal. NECK: Supple, no lymphadenopathy, no thyromegaly. ABDOMEN: Soft, nontender, nondistended. EXTREMITIES: Showed no clubbing, cyanosis. There is no Homans sign. PELVIC EXAM: Deferred to the operating room. ASSESSMENT AND PLAN: The patient is at 12 weeks gestation with a demise with no definite etiology for the demise. Plan is to proceed with D and C for completion of a missed . Surgical risks, complication, recovery and follow up have been fully discussed. The patient accepts those risks and is ready to proceed. Her blood type is B positive. Job ID: [id number] DocumentID: [id number] Dictated Date: 12/04/2018 13:20:35 Certified Detention Deputy Date: 12/04/2018 18:48:45 Dictated By: BAIRON LEGGETT MD
--- NOTE | 2018-12-10 00:41 | OPERATIVE REPORT ---
DATE OF SERVICE: 11/27/2018 OPERATIVE PROCEDURE: Dilation and curettage for missed . PREOPERATIVE DIAGNOSIS:: demise at 12 weeks' gestation. OPERATIVE DESCRIPTION: With the patient in the supine position under satisfactory general anesthesia, she was repositioned in the dorsal lithotomy position in the [facility] stirrups and prepped and draped in usual fashion for vaginal surgery. The urinary bladder was drained with a straight catheter. A weighted speculum placed in posterior fornix of vagina, cervix exposed and grasped anteriorly with single tooth tenaculum. The uterus was sounded to 12 cm with uterine sound. The cervix was then serially dilated with Vicente dilators to accommodate a #10 curved suction curette. I was introduced in the uterine cavity curettaged in all 4 quadrants with vacuum applied, removing a large amount of trophoblastic and decidual appearing tissue, blood clot, amniotic fluid and debris. The endometrial cavity was then sharply curettaged in all 4 quadrants to a good uterine cry with a sharp curette. The curved suction curette was reintroduced and all blood clot debris was evacuated in the uterus. Initially, there was fairly brisk bleeding, but that came under control on completion of the procedure. The curette and suction curette had been removed. The tenaculum was removed from the cervix. There was no significant bleeding from the cervical os. There was no bleeding from the puncture sites from the tenaculum. Sponge and needle counts correct. Estimated blood loss was around 500 mL. The patient tolerated the procedure well and was uneventfully awakened from her general anesthesia and transferred to the recovery room in stable condition with plans for discharge home PAR. Job ID: [id number] DocumentID: [id number] Dictated Date: 12/09/2018 17:24:34 Pay Station Attendant Date: 12/10/2018 00:40:43 Dictated By: BAIRON LEGGETT MD
== END 2018-11-27 15:15 | disposition home or self-care (01) ==
LOC: SDC 11:14
PROVIDERS: ATTEND Obstetrics & Gynecology
DX: O02.1 Missed abortion (principal); Z3A.12 12 weeks gestation of pregnancy; Z11.2 Encounter for screening for other bacterial diseases
CPT/HCPCS: 36415; 85025; 87081; 88305